=== PATIENT | male | born 1950 | race Caucasian/White ===

== ENCOUNTER 2021-03-25 07:49 | Day surgery (SDC) | payer OTHER ==
[2021-03-20 12:48] VITALS: BMI 25.8
[2021-03-25 09:42] VITALS: TEMP 98.1
[2021-03-25 09:52] VITALS: BP 110/64; PULSE 63
== END 2021-03-25 10:00 | disposition home or self-care (01) ==
LOC: FASU-ENDO 07:49
PROVIDERS: ATTEND Internal Medicine Gastroenterology
PROC: 0DJD8ZZ Inspection of Lower Intestinal Tract, Via Natural or Artificial Opening Endoscopic (ICD-10-PCS; principal; 2021-03-25 09:12)
DX: Z86.010 Personal history of colon polyps (principal); K57.30 Diverticulosis of large intestine without perforation or abscess without bleeding